=== PATIENT | female | born 1970 | race Caucasian/White ===

== ENCOUNTER 2018-12-13 10:57 | Day surgery (SDC) | payer OTHER ==
[~2018-12-13] VITALS: Ht 157.5 cm; Wt 46.0 kg
[~2018-12-13 10:57] MED LIST: DIAZ10TA89 PO; LEVO112T2 PO; VENL75TA2 PO; [UNRECOGNIZED DRUG - CODE] PO
[2018-12-13 11:59] VITALS: Ht 157.5 cm; Wt 46.0 kg
[2018-12-13] MEDS ORDERED: CIME400T PO (12:14)
[2018-12-13] MEDS ORDERED: [UNRECOGNIZED DRUG - OTHER] (12:14)
[2018-12-13] MEDS ORDERED: ALPRAZOLAM (12:14)
[2018-12-13] MEDS ORDERED: ZANTAC DAILY (12:14)
[2018-12-13] MEDS ORDERED: NORCO PRN (12:14)
[2018-12-13] MEDS ORDERED: OMEP40CA6 PO (12:14)
[2018-12-13 12:59] VITALS: BP 116/69; PULSE 65; RESP 18
--- NOTE | 2018-12-13 13:16 | PREAC ---
Date/Time of Note Date/Time of Note DATE: 12/13/18 TIME: 13:14 Anesthesia Eval and Record Evaluation Time Pre-Procedure Interview DATE: 12/13/18 TIME: 13:14 Age 48 Sex female NPO: 8 hrs Preoperative diagnosis GERD, change in bowel habits Planned procedure EGD, colonoscopy Past Medical History Past Medical History: Includes Endo: Hypothyroid GI: GERD Psych: Depression, Anxiety, Bipolar Surgery & Anesthesia Issues No known issue Meds Anticoagulation: No Beta Hailey within 24 hr: No Reason Beta Hailey not given: Pt. not on B-Hailey Reported Medications Cimetidine* (Cimetidine*) 400 Mg Tablet, 400 MG PO HS, TAB 12/13/18 [[place] Prn] No Conflict Check 12/13/18 [Xanax Daily] No Conflict Check 12/13/18 [[place] Daily] No Conflict Check 12/13/18 Omeprazole* (Omeprazole*) 40 Mg Capsule.dr, 40 MG PO DAILY, #30 CAP 12/13/18 [Zantac Daily] No Conflict Check 12/13/18 Levothyroxine Sodium* (Synthroid*) 112 Mcg Tablet, 112 MCG PO DAILY 06/23/12 Discontinued Reported Medications Venlafaxine Hcl* (Effexor XR*) 75 Mg Tab.er.24, 75 MG PO DAILY, TAB.SA 04/20/15 Diazepam (Valium) 10 Mg Tablet, 10 MG PO PM 06/23/12 Hydrocodone Bit/Acetaminophen (Hydrocodone-Apap 7.5-750 Tb) 1 Tab Tablet, 1 TAB PO QID 06/23/12 Meds reviewed: Yes Allergies Coded Allergies: No Known Drug Allergies (Verified Allergy, Unknown, 12/13/18) Allergies Reviewed: Yes Labs/Studies Labs Reviewed: Reviewed by anesthesiologist test: Negative Pre-procedure Exam Last vitals Vital Signs Date Temp Pulse Resp B/P (MAP) Pulse Ox O2 O2 Flow FiO2 Time Delivery Rate 12/13/18 98.0 65 18 116/69 100 Room Air 12:59 (85) Airway: Adequate mouth opening, Adequate thyromental dist Mallampati: Mallampati II Teeth: Normal Lung: Normal Heart: Normal ASA Physical Status ASA physical status: 2 Emergency: None Planned Anesthetic General/MAC: Mask Planned Pain Management Parenteral pain med Pre-operative Attestations Prior to commencing anesthesia and surgery, the patient was re-evaluated, there was verification of: *The patient's identity *The results of appropriate recent lab work and preoperative vital signs *The above evaluation not changing prior to induction *Anesthetic plan, risk benefits, alternative and complications discussed with patient/family; questions answered; patient/family understands, accepts and wishes to proceed. JONI GUTIERREZ MD Dec 13, 2018 13:16
[2018-12-13] MEDS ORDERED: HYDROmorphONE 1 MG/5 ML IV SYRINGE IV PRN (13:30)
[2018-12-13] MEDS ORDERED: ONDANSETRON 4 MG INJ IV PRN (13:30)
[2018-12-13] MEDS ORDERED: LIDOCAINE 2% (SDV) 5 ML INJ ONE (13:34)
[2018-12-13] MEDS ORDERED: PROPOFOL 40 ML ONE (13:34)
[2018-12-13] MEDS ORDERED: MIDAZOLAM 1 MG/ML 2 ML INJ ONE (13:45)
[2018-12-13] MEDS ORDERED: PHENYLephrine (100 MCG/ML) 10ML SYG ONE (14:08)
[2018-12-13] MEDS ORDERED: PROPOFOL 20 ML ONE (14:15)
[2018-12-13] MEDS ORDERED: EPHEDrine 50 MG INJ ONE (14:15)
--- NOTE | 2018-12-13 14:18 | PAC ---
Date/Time of Note Date/Time of Note DATE: 12/13/18 TIME: 14:17 Post-Anesthesia Notes Post-Anesthesia Note Last documented vital signs Vital Signs Date Temp Pulse Resp B/P (MAP) Pulse Ox O2 O2 Flow FiO2 Time Delivery Rate 12/13/18 98.0 65 18 116/69 100 Room Air 12:59 (85) Activity: WNL Respiratory function: WNL Cardiovascular function: WNL Mental status: Baseline Pain reasonably controlled: Yes Hydration appropriate: Yes Nausea/Vomiting absent: Yes Comments BP: 122/73 HR: 84 RR: 15 T: 98 SaO2: 100% JONI GUTIERREZ MD Dec 13, 2018 14:18
[2018-12-13 14:38] VITALS: BP 135/77; PULSE 83; RESP 16
--- NOTE | 2018-12-14 06:30 | CONS ---
DATE OF ADMISSION: 12/13/2018 DATE OF CONSULTATION: PATIENT NAME: SABRINA TRINIDAD TYPE OF CONSULTATION: Preoperative gastroenterology. Dear Dr. Berman: I thank you very much for this kind referral. HISTORY OF PRESENT ILLNESS: Ms. Sabrina Trinidad is a 48-year-old female patient who has been referre d to me for further evaluation of change in the bowel habit with constipation. The patient used to h ave diarrhea. She denies any history of rectal bleeding. She also complains of weight loss. No pas t history of inflammatory bowel disease or colon neoplasm. She complains of upper abdominal pain and chronic heartburn with difficulty in swallowing. She has been taking omeprazole and Zantac. Not on nonsteroidal anti-inflammatory agents. No history of gallstones or liver disease. She is not a hyp ertensive or diabetic. No heart disease or lung problem. PAST MEDICAL HISTORY: She has history of renal stones. She has hypothyroidism. She has got bipolar disorder and anxiety disorder. SOCIAL HISTORY: She is a nonsmoker. No alcohol abuse. FAMILY HISTORY: No family history of gastrointestinal tract neoplasm. ALLERGIES: NO DRUG ALLERGIES. MEDICATIONS: 1. Zantac. 2. Omeprazole. 3. Levothyroxine. 4. [place]. 5. Xanax. 6. [place]. PHYSICAL EXAMINATION: VITAL SIGNS: She is 5 feet, 2 inches tall and weighs 104 pounds. HEART: Normal heart sounds. LUNGS: Clear. ABDOMEN: Soft. No masses. Normal bowel sounds. NEUROLOGIC: Normal. IMPRESSION: 1. Change in the bowel habit from diarrhea to constipation. 2. Weight loss. 3. Upper abdominal pain and chronic heartburn, not responding to therapy with omeprazole and Zantac. 4. The patient also complains of dysphagia. 5. History of renal stones. 6. Hypothyroidism. 7. Bipolar disorder and anxiety disorder. 8. The patient had abdominal CT scan done and it was normal. PLAN: 1. Colonoscopy and upper endoscopy for further evaluation. 2. Because of the anxiety disorder, the patient needs monitored anesthesia care. The procedures and possible complications are well explained to the patient. She understands and con sents to the procedures. I thank you once again. With warmest personal regards, Dictated By: MARTHA CAN/DIVYA Conf#: [id number] [facility]#: [id number]
== END 2018-12-13 16:41 | disposition home or self-care (01) ==
LOC: GIL 10:57
PROVIDERS: ATTEND Internal Medicine Gastroenterology
DX: K64.8 Other hemorrhoids (principal); E03.9 Hypothyroidism, unspecified
CPT/HCPCS: 43239; 45378; 84703; 88305; J2250; J2370; Z7610